=== PATIENT | female | born 1935 | race Hispanic/Latino ===

== ENCOUNTER 2020-05-18 02:05 | Emergency (ER) | payer MEDICARE ==
[2020-05-18 02:48] LABS: #Basophils 0.1 thou/uL (0.0-0.2); #Lymphocytes 1.2 thou/uL (1.20-3.40); #Monocytes 0.3 thou/uL (0.11-0.59); #Neutrophils 5.2 thou/uL (1.40-6.50); %Basophils 0.9 % (0.0-1.0); %Eosinophils 0.3 % (0.0-10.0); %Lymphocytes 17.9 % (21.0-51.0); %Monocytes 4.8 % (0.0-10.0); %Neutrophils 76.2 % (42.0-75.0); Hemoglobin 12.1 g/dL (12.0-16.0); Mean Corpuscular HGB CONC 33.2 g/dL (32.0-36.0); Mean Corpuscular Hemoglobin 31.2 pg (27.0-31.0); Mean Corpuscular Volume 93.8 fL (78.0-98.0); Mean Platelet Volume 8.9 fL (7.4-10.4); Platelet Count 214 thou/uL (130-400); RBC Distribution Width 12.3 % (11.5-14.5); White Blood Cell (WBC) Count 6.8 thou/uL (4.8-10.8)
[2020-05-18 03:07] LABS: ALT (SGPT) 9 U/L (8-55); AST (SGOT) 19 U/L (5-34); Albumin 4.3 g/dL (3.4-4.8); Alkaline Phosphatase 86 U/L (40-110); Anion Gap 14 mmol/L (10-20); BUN (Urea Nitrogen) 15 mg/dL (9.8-20.1); Bilirubin, Total 0.4 mg/dL (0.2-1.2); Calc. Creatinine Clearance 0 mL/min (70-130); Calcium 9.1 mg/dL (7.8-10.44); Carbon Dioxide 25 mmol/L (23-31); Chloride 99 mmol/L (98-107); Estimated GFR-MDRD 79; Glucose 190 mg/dL (83-110); Lipase 65 U/L (8-78); Potassium 3.7 mmol/L (3.5-5.1); Protein, Total 7.3 g/dL (6.0-8.3); Sodium 134 mmol/L (136-145)
[2020-05-18 03:58] LABS: Bacteria/HPF 3+ HPF (None Seen); Bilirubin Negative (Negative); Blood, Urine Negative (Negative); Clarity Turbid (Clear); Glucose, Urine (Dipstick) 100 mg/dL (Negative); Ketone, Urine Negative (Negative); Leukocyte 500 Leu/uL (Negative); Nitrite 2+ (Negative); Protein, Urine (Dipstick) 10 mg/dL (Neg-Trace); RBC/HPF 0-3 HPF (0-3); Specific Gravity, Urine 1.014 (1.002-1.036); Squamous Epithelial 0-3 HPF (0-3); Urobilinogen Normal mg/dL (Less than 2)
[2020-05-18] MEDS ORDERED: cefTRIAXone\\ROCEPHIN 1 GM VIAL ONE (04:10)
--- NOTE | 2020-05-18 07:02 | CT ---
CT OF THE BRAIN WITHOUT CONTRAST: INDICATION: History of headache and weakness. COMPARISON: None. FINDINGS: There is generalized cerebral and cerebellar atrophy with moderate chronic small-vessel white matter ischemic change. No acute infarct, hemorrhage, or hydrocephalus is present. No midline shift is flavio dent. Mastoid air cells and paranasal sinuses are clear. The skull is intact. IMPRESSION: No acute intracranial abnormality. POS: BH
--- NOTE | 2020-05-18 07:44 | RAD ---
EXAM: Single view of the chest HISTORY: Headache and chest pain COMPARISON: None FINDINGS: Single view of the chest shows a normal sized cardiomediastinal silhouette. There is no flavio dence of consolidation, mass, or pleural effusion. No acute osseous abnormality. IMPRESSION: No evidence of acute cardiopulmonary disease
--- NOTE | 2020-05-26 13:52 | EKG ---
Test Reason : CHESTPAIN Blood Pressure : / mmHG Vent. Rate : 070 BPM Atrial Rate : 070 BPM P-R Int : 134 ms QRS Dur : 074 ms QT Int : 426 ms P-R-T Axes : 030 025 053 degrees QTc Int : 460 ms Normal sinus rhythm Normal ECG Confirmed by MARNI BRITT [id number]), legal editor CARISSA SALDAÑA ([id number] on 05/26/2020 1:51:22 PM Referred By: Confirmed By:MARNI Hernandez
== END 2020-05-18 05:00 | disposition home or self-care (01) ==
LOC: ERS 02:05
DX: N39.0 Urinary tract infection, site not specified (principal); R53.83 Other fatigue; I10 Essential (primary) hypertension; E78.5 Hyperlipidemia, unspecified; Z79.899 Other long term (current) drug therapy
CPT/HCPCS: 36415; 70450; 71045; 80053; 81003; 81015; 83605; 83690; 84484; 85025; 87040; 87077; 87086; 87186; 93005; 96361; 96365; J0696